=== PATIENT | male | born 1965 | race Caucasian/White ===

== ENCOUNTER 2016-04-23 09:31 | Day surgery (SDC) | payer MEDICARE, OTHER ==
[2016-04-21 10:51] VITALS: BMI 33.7
[~2016-04-23 09:31] MED LIST: LACTATED RINGERS 1,000 ML IV SCH
[2016-04-23] MEDS ORDERED: LIDOCAINE 1% 20 ML VIAL (10MG/ML) FOR IV START INTRADERMA ONE (10:08)
[2016-04-23 10:11] VITALS: RESP 18; TEMP 98.4
[2016-04-23] MEDS ORDERED: MIDAZOLAM 2 MG/2 ML VIAL ONE (10:31)
[2016-04-23] MEDS ORDERED: BUPIVACAINE (PF) 0.5% 30 ML VIAL ONE (10:31)
[2016-04-23] MEDS ORDERED: fentaNYL (PF) 50 MCG/ML 2 ML AMP ONE (10:31)
[2016-04-23] MEDS ORDERED: IOHEXOL 180 MG/ML 1 ML ML ONE (10:31)
[2016-04-23] MEDS ORDERED: TRIAMCINOLONE ACETONIDE 40 MG/ML 1 ML VIAL ONE (10:31)
[2016-04-23] MEDS ORDERED: IV FLUID CONTINUATION 1,000 ML IV ONE (10:57)
--- NOTE | 2016-04-23 10:59 | P.PCN ---
Date of Procedure: 04/23/16 Anesthesia: MAC Surgeon: Sourav Arias Pathology: none sent Condition: stable Disposition: PACU Description of Procedure: PREOPERATIVE DIAGNOSIS: 1-Bilateral sacroiliitis. 2 Lumbar DDD 3. Myofascial pain syndrome POSTOPERATIVE DIAGNOSIS: same PROCEDURES: 1. RIGHT Sacroiliac joint steroid injection with fluoroscopic guidance 2. RIGHT thoracic paravertebral, rhomboid, trapezius trigger point injections, ANESTHESIA: Conscious sedation with Versed/fentanyl. EBL: Minimal. PROCEDURE INDICATIONS: This patient with a history of low back pain secondary to sacroiliitis and lumbar DDD unresponsive to conservative management. Patient got four weeks of relief > 50% from second injection after obtaining one week of relief from the first one. Patient last had LESI in February with only 3 days' worth of relief. No use of blood thinners. PROCEDURE DESCRIPTION: The patient was seen and identified in the preoperative area. Risks, benefits, complications, and alternatives were discussed with the patient (including but not limited to incomplete pain relief, bleeding, infection, nerve damage, and allergies to medications), the patient agreed to proceed with the procedure and signed the consent after all questions were answered. Patient was taken to the OR and time out was completed to verify proper patient , position, laterality of pain, and allergies. Pt was placed in the prone position and a pillow was placed under the abdomen to reduce lumbar lordosis. The lumbosacral area was prepped and draped in the usual sterile fashion. Critical pause was taken. Vital signs were closely monitored during the procedure. The fluoroscopic camera was placed in contralateral oblique view and right sacroiliiac joint lower pole was identified. Subsequently, a 22-gauge 3.5 inch spinal needle was introduced into the posteroinferior aspect of the right sacroiliac joint under direct fluoroscopic visualization. Subsequently, 4 ml solution containing total 2 mL of 0.5% preservative-free bupivicaine mixed with 80 mg of Kenalog was injected after negative aspiration for CSF, blood, and air and negative for paresthesia. Needle was withdrawn intact. Attention was then turned to the right shoulder and paravertebral areas. Eight areas were palpated and elicited pain from the patient and were marked appropriately with a sterile marker. The area overlying these points was prepped and draped in a sterile fashion. The skin overlying each of the eight trigger points was infiltrated with 1% lidocaine. After localization, each point was entered with a 27g needle and dry needling was performed. At each site, 1 ml of the 8 ml solution (containing 7 ml 0.5% PF bupivacaine and 40 mg Kenalog) was injected. Needle was removed intact each time. After both procedures were completed, skin was cleansed, and bandages were applied. COMPLICATIONS: None. COMMENTS: DISPOSITION / PLANS: The patient was placed in a supine position and transferred to the recovery area in a stable condition for observation and was discharged from the recovery room after meeting discharge criteria. Home discharge instructions given to the patient by the staff. The patient was reexamined prior to discharge and there were no issues. The patient will schedule a follow-up in clinic in 4-6 weeks. Last urine drug screen was negative for both fentanyl and oxycodone and positive for tramadol. We only prescribe the first two for the patient. I repeated urine drug screen today PRIOR to any sedation being given and wrote prescriptions for one month, to be filled on or after 05/19/16. For purposes of UDS, please note that patient was wearing a fentanyl patch on his abdomen and stated that he had taken a Percocet pill at 5:30 AM this morning.
[2016-04-23 11:15] VITALS: BP 117/82; PULSE 79
--- NOTE | 2016-04-23 12:02 | FL ---
EXAMINATION TYPE: FL guided pain mgmt statistic DATE OF EXAM: 04/23/2016 11:05 AM FLUOROSCOPY Fluoroscopy time of 2 seconds was used during right SI joint injection. 2 image/s document/s the pro cedure.
== END 2016-04-23 11:40 | disposition home or self-care (01) ==
LOC: ORPAIN 09:31
PROVIDERS: ATTEND Anesthesiology
DX: G89.29 Other chronic pain (principal); M46.1 Sacroiliitis, not elsewhere classified; M51.36 Other intervertebral disc degeneration, lumbar region; M79.1 Myalgia; F41.9 Anxiety disorder, unspecified; E66.9 Obesity, unspecified; M10.9 Gout, unspecified; Z79.891 Long term (current) use of opiate analgesic; Z79.1 Long term (current) use of non-steroidal anti-inflammatories (NSAID); Z79.899 Other long term (current) drug therapy
CPT/HCPCS: 80307 ×2; 20553; J2250; J3301; Q9965; J3010; G0260; 27096; 80346; 80354; 80364

== ENCOUNTER 2016-05-28 12:00 | Day surgery (SDC) | payer MEDICARE, OTHER ==
[2016-05-27 11:28] VITALS: BMI 33.4
[2016-05-28 11:01] VITALS: TEMP 98.2
[~2016-05-28 12:00] MED LIST changes: +LACTATED RINGERS 1,000 ML IV ONE; +LIDOCAINE 1% 20 ML VIAL (10MG/ML) FOR IV START SQ ONE; +MIDAZOLAM 2 MG/2 ML VIAL ONE; +TRIAMCINOLONE ACETONIDE 40 MG/ML 1 ML VIAL ONE; +fentaNYL (PF) 50 MCG/ML 2 ML AMP ONE
[2016-05-28] MEDS ORDERED: IV FLUID CONTINUATION 1,000 ML IV ONE (12:31)
[2016-05-28 12:58] VITALS: BP 125/77; PULSE 60; RESP 19
--- NOTE | 2016-05-28 13:01 | FL ---
FLUOROSCOPY 33 seconds of fluoroscopy time were utilized during right SI joint injection. 2 images document the p rocedure.
--- NOTE | 2016-05-28 13:30 | P.PCN ---
Date of Procedure: 05/28/16 Surgeon: Sourav Arias Pathology: none sent Condition: stable Disposition: PACU Description of Procedure: PREOPERATIVE DIAGNOSIS: Sacroiliitis; lumbar spondylosis without myelopathy POSTOPERATIVE DIAGNOSIS: Sacroiliitis; lumbar spondylosis without myelopathy PROCEDURE: Radiofrequency thermocoagulation/ablation of the Medial branch of L5 and S1, S2, S3 lateral branch levels under fluoroscopic guidance, right ANESTHESIA: Local with 1% lidocaine; IV conscious sedation with Versed/fentanyl EBL: Minimal PROCEDURE INDICATION: The patient with low back pain secondary to sacroilitis and lumbar spondylosis with marked decrease in pain with prior sacroiliac joint injections. No use of blood thinners. PROCEDURE DESCRIPTION: The patient was seen and identified in the preoperative area. Risks, benefits, complications, and alternatives were discussed with the patient, with risks including but not limited to bleeding, infection, nerve damage, incomplete pain relief, and allergic reactions to medications. The patient agreed to proceed with the procedure and signed the informed consent after all questions were answered. IV was started. Vital signs were stable throughout the procedure. Patient was taken to the OR and time out was completed.The patient was placed in the prone position on procedure table and a pillow was placed under the abdomen to reduce lumbar lordosis. The lumbosacral area was prepped and draped in the usual sterile fashion. Critical pause was taken. Vital signs were closely monitored during the procedure. L5 Medial Branch: Using right oblique fluoroscopy, the junction of the transverse process and the superior articular process of the right S1 vertebra, which correspond to the fluoroscopic image of the "eye of the Oscar dog" was identified. Skin and deeper tissues were localized with 1% lidocaine at the identified level. Then using fluoroscopy, a 10-cm 20-gauge radiofrequency cannula with a 10-mm active tip was was advanced under fluoroscopic guidance until contact was made with periosteum. At this level, the Sensory testing of L5 Medial branch was performed at 50 Hz and 0 to 1 volt with production of concordant pain. Motor stimulation was done at 2 Hz with stimulation of multifidus muscle contraction at (0-2.5) volts. No radicular symptoms or paresthesias were produced during the testing. Subsequently, the L5 medial branch was subjected to a radiofrequency ablation at a mode of 90 seconds at 80 degrees Celsius after negative motor and sensory testing as indicated and after injecting 0.5 ml of preservative free Lidocaine 1%. Then after the radiofrequency procedure was done, 1 mL of a solution containing 1 mL of 0.5% preservative-free lidocaine mixed with 20 mg of Kenalog. S1, S2, and S3 Medial branches: Using the oblique position, the right sacroiliac joint was identified. Skin and deeper tissues corresponding to the site were anesthetized with 1% lidocaine. Under fluoroscopic guidance, a total of three 10-cm 20-gauge radiofrequency cannulas with 10-mm active tips were advanced to the lateral aspects of the S1, S2, and S3 vertebral foramina. Subsequently, sensory and motor testings were performed at a total of 3 segments at 50 Hz and 2 Hz respectively which produced concordant pain without radiculopathy or paresthesia. Then each segment was subjected to radiofrequency ablation at a mode of 90 seconds at 80 degrees Celsius for a total of 3 lesions with the bipolar technique. Then after the radiofrequency procedure was done, each site was injected with 1 mL of the aforementioned solution containing 2 mL of 0.5% preservative-free bupivacaine mixed with 20 mg of Kenalog. The needles were withdrawn. Area was cleaned. Band-Aid was applied. COMPLICATIONS: None. COMMENTS: DISPOSITION / PLANS: The patient was placed in a supine position and transferred to the recovery area in a stable condition for observation and was discharged from the recovery room after meeting discharge criteria. Home discharge instructions given to the patient by the staff. The patient was reexamined prior to discharge. The patient will schedule a follow up in clinic in 4-6 weeks.
== END 2016-05-28 14:25 | disposition home or self-care (01) ==
LOC: ORPAIN 12:00
PROVIDERS: ATTEND Anesthesiology
DX: G89.29 Other chronic pain (principal); M54.5 Low back pain; M46.1 Sacroiliitis, not elsewhere classified; M47.816 Spondylosis without myelopathy or radiculopathy, lumbar region; F41.9 Anxiety disorder, unspecified; M10.9 Gout, unspecified; Z79.1 Long term (current) use of non-steroidal anti-inflammatories (NSAID); Z79.891 Long term (current) use of opiate analgesic; Z79.899 Other long term (current) drug therapy
CPT/HCPCS: 64640 ×3; 64635; 99152; 99153; J2250; J3301; J3010

== ENCOUNTER → 2016-07-13 | Outpatient (CLI) | payer MEDICARE, OTHER ==
[2016-07-13 11:40] VITALS: BP 162/93; PULSE 87; RESP 18; TEMP 98.4
--- NOTE | 2016-07-13 12:44 | P.PN ---
Subjective This is follow-up visit for this patient with a history of severe and chronic low back pain secondary to lumbar DDD, sacroiliitis lumbar facet arthropathy, myofascial pain syndrome, with done radiofrequency ablation of the sacroiliac joint, and trigger point injections On the thoracic area, the patient reported that he has significant improvement after the procedure, and his low back pain improved Currently is complaining of severe upper back pain in the left side at the shoulder blade area, and upper thoracic area, he denies any Motor or sensory deficit, he denies any change in the bowel movement or urination, and no fever or night sweats, he is taking pain medication 1-fentanyl patch 50 g every 72 hours 2-Percocet 10/325 every 4 hours 3-lidocaine 5% gel Patient denies any side effects of the medication, denies excessive drowsiness or sleepiness, denies suicidal ideation, and reports that the current pain medication is helping To control the pain and improve activity of daily living Physical Examinations : 1-Constitutiona : Cooperative , not in acute distress . 2-HEENT : nech ; supple , no Lymphadenopathy , no Thyromegaly , normal thyroid size . eyes : no ptosis , no icterus, no photophobia . ENT : normal of hearing , normal oropharynx , no Thrush . 3- Respiratory : Chest clear to auscultations Bilaterally , no wheezing , no Rhonchi . 4- Cardiovascular : regular rate and rhythem , S1 , S2 , no S3 , no S4. 5- Gastrointestinal : abdomen soft no tenderness , bowel sounds positive all four quadrents , no organomegally . 6- Genitourinary : Defferred . 7- neurologic : Cranial nerve II to XII intact , no focal neurological deffecit . 8-psychatric : alert , oriented X 3 , appropriate affect , intact judgment and insight . 9-Lymphatic : no Lymphadenopathy . 10- musculoskeltal : exams of the cervical spine = motor strength normal bilateral upper extremities Exams of the upper back area = multiple trigger points identified in the left side suprascapular and upper thoracic paravertebral muscles exams of the Lumber spine = motor strength lower extremities ,thigh and legs .5/5 deep tendon reflexes : normal Knee Jerk , normal ankle Jerk . lumber facet Loading Test positive mild tenderness over the Sacroiliac joint on the Right side Assessment and plan = - Chronic low back pain secondary to lumbar degenerative disc disease , lumbar spondylosis with facet arthropathy without myelopathy , sacroiliitis/myofascial pain syndrome thoracic and suprascapular muscles on the left side - chronic and current use of high-risk medication (Opioids). The patient was counseled about risk of opioid use, psychological risk associated with opioids and was orally counseled to not overuse , divert,or sell dictations to take medications as prescribed only , and to restore medication in safe location , and the patient counseled against driving while using narcotic medications, and also not to use alcohol or any illicit recreational drugs, the patient's verbalized understanding that the lack of compliance will result in failure to renew narcotic prescription and possible discharge from the clinic - diagnoses, prognosis, and treatment options including but not limited to physical therapy, surgical interventions, interventional therapies , and medication management including narcotics and adjuvant medication were discussed with the patient and all The questions answered -medication management =1-fentanyl patch 50 g every 72 hours dispense 10 with one refill, Percocet 10/325 every 4 when necessary Dispense 150 with 1 refill, lidocaine 5% gel to be applied to the painful area twice a day 5 refills -procedure= left side suprascapular/upper thoracic area and trigger point injections Objective - Vital Signs Vital signs: Vital Signs Temp 98.4 F 07/13/16 11:34 Pulse 87 07/13/16 11:34 Resp 18 07/13/16 11:34 BP 162/93 07/13/16 11:34 Pulse Ox Intake & Output 07/12/16 07/13/16 07/13/16 18:59 06:59 18:59 Weight 111.13 kg
== END | disposition home or self-care (01) ==
LOC: PNWHC3 11:33
PROVIDERS: ATTEND Specialist
DX: M51.36 Other intervertebral disc degeneration, lumbar region (principal); M47.816 Spondylosis without myelopathy or radiculopathy, lumbar region; M46.86 Other specified inflammatory spondylopathies, lumbar region; M46.1 Sacroiliitis, not elsewhere classified; M79.1 Myalgia
CPT/HCPCS: 99211

== ENCOUNTER 2016-08-10 07:53 | Day surgery (SDC) | payer MEDICARE, OTHER ==
[2016-08-06 13:46] VITALS: BMI 35.2
[~2016-08-10 07:53] MED LIST changes: -LACTATED RINGERS 1,000 ML IV ONE; -LIDOCAINE 1% 20 ML VIAL (10MG/ML) FOR IV START SQ ONE; -MIDAZOLAM 2 MG/2 ML VIAL ONE; -TRIAMCINOLONE ACETONIDE 40 MG/ML 1 ML VIAL ONE; -fentaNYL (PF) 50 MCG/ML 2 ML AMP ONE
[2016-08-10 08:21] VITALS: RESP 18; TEMP 97.2
[2016-08-10] MEDS ORDERED: LIDOCAINE 1% 20 ML VIAL (10MG/ML) FOR IV START INTRADERMA ONE (08:26)
[2016-08-10] MEDS ORDERED: TRIAMCINOLONE ACETONIDE 40 MG/ML 1 ML VIAL ONE (08:46)
[2016-08-10] MEDS ORDERED: MIDAZOLAM 2 MG/2 ML VIAL ONE (08:46)
[2016-08-10] MEDS ORDERED: fentaNYL (PF) 50 MCG/ML 2 ML AMP ONE (08:46)
[2016-08-10] MEDS ORDERED: BUPIVACAINE (PF) 0.75% 30 ML VIAL ONE (08:46)
--- NOTE | 2016-08-10 09:07 | P.PCN ---
Date of Procedure: 08/10/16 Procedure(s) Performed: Preoperative diagnoses= 1-myofascial pain syndrome Postoperative diagnoses= same as preoperative diagnosis. Procedure= left side suprascapular trigger point injection (total of 2 trigger point injected ) Anesthesia= conscious sedation with Versed 2 mg and fentanyl 100 micrograms. Estimated blood loss=minimal. Procedure indication= the patient had a history of severe chronic upper back pain (left supra scapular area ), unresponsive to conservative treatment. Procedure description= the patient was seen and identified in the preoperative holding area, risks and benefits and alternative of the procedure and possible complications discussed with the patient, and he agreed with the preceding, patient signed the consent, an IV was started, and vital signs were monitored and were stable throughout the procedure, patient was placed in the sitting position or table and the upper back area ,shoulder blad area was prepped and draped with a sterile fashion, vital signs were closely monitored during the procedure , the trigger points was marked in the preop holding area ,,then using 25 gauge needle advanced slowly placed at each trigger point using 0.75% of Marcaine , and after negative aspiration each of the trigger point injected with the 3 mL of 0.75% of Marcaine , a total of 6 mL of Marcaine 0.75% used which was mixed with 40 mg of Kenalog , injection done after negative aspiration under was no paresthesia during the injection Patient tolerated the procedure well without any complication, The patient returned to supine position after the back was cleaned and a Band- Aid applied, the patient transported to recovery room in stable condition and he was monitored for 30 minutes before he was discharged home and then patient was reexamined before going home and patient was discharged in stable condition and patient will follow up with the pain clinic in a few weeks
[2016-08-10 09:22] VITALS: BP 140/91; PULSE 80
== END 2016-08-10 09:38 | disposition home or self-care (01) ==
LOC: ORPAIN 07:53
PROVIDERS: ATTEND Specialist
DX: G89.29 Other chronic pain (principal); M54.89 Other dorsalgia; M79.1 Myalgia; Z88.8 Allergy status to other drugs, medicaments and biological substances; Z88.1 Allergy status to other antibiotic agents; Z91.030 Bee allergy status
CPT/HCPCS: 20552; J2250; J3301; J3010; 20553

== ENCOUNTER → 2016-09-07 | Outpatient (CLI) | payer MEDICARE, OTHER ==
[2016-09-07 11:58] VITALS: BP 164/103; PULSE 104; RESP 16; TEMP 98.8
--- NOTE | 2016-09-07 12:13 | P.PN ---
Progress Note - Text The patient returns for follow-up of chronic back and neck pain. Patient underwent right SI RFA and more recently, TPI in left shoulder that have both helped him. Patient continues on his fentanyl patch and Percocet medication with good relief at this time. There are no signs or symptoms of opioid abuse/ misuse/diversion He continues to complain of returning low back and hip pain on the left side that has been responsive to previous sacroiliac joint injections and radiofrequency ablation (2011) in the past. Patient is doing well with his medications and denies any side effects to them. Review of systems is negative for chest pain, shortness of breath, changes in vision, changes in hearing, new onset weakness, abdominal pain, diarrhea, extreme fatigue, malaise, fever, skin changes, homicidal or suicidal ideation, or bowel or bladder incontinence. Gen: WDWN, AAOx3, NAD HEENT: NCAT, EOMI, hearing grossly normal Pulm: resp unlabored Abd: soft, NT, ND Neck: supple, trachea midline ROM in flexion lumbar spine: reduced ROM in extension lumbar spine: reduced Lumbar paravertebral tenderness: + bilateral Facet loading: + bilateral, L >> R SI joint tenderness: + Delmer's test: + bilaterally, L >> R Straight leg raise: neg bilateral Neuro: CN II-XII grossly intact, muscle strength lower extremities PRESERVED Imaging: Reviewed in EMR Assessment: 1. Sacroiliitis 2. Cervical radiculopathy 3. Lumbar spondylosis without myelopathy Plan: 1. Explanation: Opioid and psychological risk scores were reviewed. Diagnoses , prognoses, and multiple treatment options including but not limited to physical therapy, interventional therapies, adjuvant medical therapies, narcotic medication therapies, and surgery were discussed with the patient and all questions were answered to the patient's satisfaction. 2. Opioid agreement: Patient has previously signed narcotic agreement, and was orally counseled to not overuse, abuse, divert, or cell medications, and to take them as prescribed by only 1 healthcare provider. The patient was also counseled to store opioid medications in a safe and preferably locked location. Patient was also counseled against driving while using narcotic medications and also to not use alcohol or any illicit or recreational drugs. The patient verbalized understanding that lack of compliance with any of the above and likely result in failure to renew narcotic prescriptions, possible discharge from the clinic, and possible legal ramifications thereafter if indicated. 3. Counseling: The patient was counseled extensively on SMOKING CESSATION, BODY MASS INDEX, EXERCISE. Specifically, the patient was instructed regarding the importance of smoking cessation, obesity, and exercise in the context of both chronic pain and overall health. 4. Procedures: L SI RFA 5. Consultations: None 6. Investigations: None 7. Medications: Fentanyl patch (50 mcg/hr #10) + Percocet (10/325 #150) x 2 months 8. Disposition: f/u for procedure as scheduled; I have informed patient that we will likely begin decreasing his Percocet at next visit in order to get him closer to #90 within the next six months. PQRS measures: 1-Patient's medications are documented in the chart. 2-Tobacco use is negative 3-Patient has not had a pneumococcal vaccine. 4-Advanced care planning discussed, patient unable to give. 5-Opioid contract signed with the patient. 6-Pain positive, follow-up visit or procedure scheduled 7-Patient's blood pressure measured and documented, and patient will follow up with the primary care due to hypertension. 8-Patient's weight was measured, and body mass index ABOVE the normal limits, and counseling was done. Patient instructed to follow up with PCP. 9-Patient WAS NOT identified as an unhealthy alcohol user.
== END ==
LOC: PNWHC3 11:38
PROVIDERS: ATTEND Anesthesiology
DX: M54.12 Radiculopathy, cervical region (principal); M47.26 Other spondylosis with radiculopathy, lumbar region; M46.1 Sacroiliitis, not elsewhere classified; G89.29 Other chronic pain; Z79.891 Long term (current) use of opiate analgesic
CPT/HCPCS: 99211

== ENCOUNTER 2016-09-08 14:36 | Emergency (ER) | payer MEDICARE, OTHER ==
[2016-09-08] MEDS ORDERED: MORPHINE SULFATE 4 MG/ML SYRINGE IM STA (15:29)
[2016-09-08] MEDS ORDERED: KETOROLAC 60 MG/2 ML VIAL IM STA (15:30)
--- NOTE | 2016-09-08 15:33 | ED ---
Extremity Problem HPI - General Chief complaint: Extremity Problem,Nontraumatic Stated complaint: Leg Pain Time Seen by Provider: 09/08/16 15:20 Source: patient, RN notes reviewed Mode of arrival: wheelchair Limitations: no limitations - History of Present Illness Initial comments: 50-year-old male presents emergency Department with chief complaint of knee pain , left wrist pain. Patient states that he has a long-standing history of severe gout. Patient felt that he was having a dry mouth because of his cultures seen so he stopped it states that 2 days later he had pain in his knee and his wrists where he usually gets his gout. Patient states that he started taking his cultures seen and indomethacin once daily yesterday states that he has had some improvement but he is out of his pain medication. Patient states pain management. Patient states that he also noticed coating on his tongue which she believes is thrush because his had not past. Patient states that he has been trying to brush her and gargle with different stuff but is not helping. Patient denies any fevers or chills. - Related Data Home Medications Medication Instructions Recorded Confirmed ALPRAZolam [Xanax] 0.5 mg PO Q8HR PRN 06/27/14 09/07/16 Allopurinol [Zyloprim] 300 mg PO DAILY PRN 10/02/15 09/07/16 Indomethacin [Indocin] 50 mg PO TID PRN 10/23/15 09/07/16 Colchicine 0.6 mg PO DAILY PRN 11/23/15 09/07/16 Previous Rx's Medication Instructions Recorded Lidocaine 5% Oint [Xylocaine 5% 1 applic TOPICAL DAILY PRN #1 07/13/16 Oint] applic fentaNYL 50MCG/HR PATCH [Duragesic 1 patch TRANSDERM Q72H #10 patch 09/07/16 50MCG/HR] fentaNYL 50MCG/HR PATCH [Duragesic 1 patch TRANSDERM Q72H #10 patch 09/07/16 50MCG/HR] oxyCODONE HCL/ACETAMINOPHEN 1 tab PO Q4HR PRN #150 tab 09/07/16 [Percocet 10-325 mg] oxyCODONE-APAP 10-325MG [Percocet 10 mg PO Q4HR PRN #150 tab 09/07/16 10-325 mg] Nystatin 100,000 Unit/ml Susp 5 ml PO QID #200 ml 09/08/16 [Mycostatin Oral Susp] Allergies Allergy/AdvReac Type Severity Reaction Status Date / Time bee pollen [Bee Pollen] Allergy Swelling Verified 09/08/16 14:40 doxycycline calcium Allergy Swelling Verified 09/08/16 14:40 [From Vibramycin] gabapentin Allergy Rash/Hives Verified 09/08/16 14:40 Tvtavlm-Oqn-Rfu Reductase Allergy Unknown Verified 09/08/16 14:40 Inhibitor simvastatin AdvReac Confusion Verified 09/08/16 14:40 Review of Systems ROS Statement: Those systems with pertinent positive or pertinent negative responses have been documented in the HPI. ROS Other: All systems not noted in ROS Statement are negative. Past Medical History Past Medical History: Cancer, Hyperlipidemia, Osteoarthritis (OA), Skin Disorder Additional Past Medical History / Comment(s): LEFT SHOULDER SKIN CANCER,CHRONIC BACK PAIN- DDD,HX GOUT, PAIN IN NECK,BACK,RAFAELA. KNEES & HIPS & LT SHOULDER, SOME DRY PATCHES ON ARMS & CALVES, increasing pain right hip, last episode of Gout 3 weeks ago. History of Any Multi-Drug Resistant Organisms: None Reported Past Surgical History: Back Surgery, Hernia Repair, Joint Replacement, Orthopedic Surgery Additional Past Surgical History / Comment(s): RIGHT AND LEFT KNEE ARTHROSCOPIC , LEFT WRIST GANGLION CYST & TUMOR REMOVED,RAFAELA. ING. HERNIA- NO MESH, A CHILD CYST OFF CHEST AREA, PAIN CLINIC PROCEDURES Past Anesthesia/Blood Transfusion Reactions: No Reported Reaction Past Psychological History: Anxiety Smoking Status: Former smoker Past Alcohol Use History: Occasional Additional Past Alcohol Use History / Comment(s): SMOKER 1992 TILL 06/12/2002- WAS 1 1/2 PPD Past Drug Use History: None Reported - Past Family History Mother Family Medical History: Cancer General Exam Limitations: no limitations General appearance: alert, in no apparent distress ENT exam: Absent: normal oropharynx (There is a coating noted on the tongue which is white in nature) Neck exam: Present: normal inspection. Absent: tenderness, meningismus, lymphadenopathy Respiratory exam: Present: normal lung sounds bilaterally. Absent: respiratory distress, wheezes, rales, rhonchi, stridor Cardiovascular Exam: Present: regular rate, normal rhythm, normal heart sounds. Absent: systolic murmur, diastolic murmur, rubs, gallop, clicks Extremities exam: Present: other (Right knee there is moderate swelling and very sensitive palpation. His small joint effusion. Vascular intact, left wrist there is tenderness palpation, swelling noted no open lesions or sores minimal erythema) Skin exam: Present: warm, dry, intact, normal color. Absent: rash Course Vital Signs 09/08/16 14:37 Temperature 98.7 F Pulse Rate 96 Respiratory 18 Rate Blood Pressure 177/82 O2 Sat by Pulse 93 L Oximetry Medical Decision Making - Medical Decision Making 48-year-old male that has history of gout presented for joint pain. Patient symptoms started after he stopped scrotal seen. Patient's symptoms are consistent for gout. Patient is advised to increase his indomethacin to 3 times a day and continue his colchicine. Patient will be given nystatin for his thrush. Patient follow-up with pain management. Disposition Clinical Impression: Thrush, Gout of left wrist, Gout of knee Disposition: HOME SELF-CARE Condition: Stable Instructions: Gout (ED) Additional Instructions: Please return to the Emergency Department if symptoms worsen or any other concerns. Prescriptions: Nystatin 100,000 Unit/ml Susp [Mycostatin Oral Susp] 5 ml PO QID #200 ml Referrals: Nela Gill MD [Primary Care Provider] - 1-2 days Time of Disposition: 15:33
[2016-09-08] MEDS ORDERED: MORPHINE SULFATE 10 MG/ML SYRINGE IM STA (15:44)
[2016-09-08 16:00] VITALS: BP 153/86; PULSE 89; RESP 16; TEMP 98
== END 2016-09-08 16:02 | disposition home or self-care (01) ==
LOC: EC 14:36
DX: M10.9 Gout, unspecified (principal); B37.0 Candidal stomatitis; M25.461 Effusion, right knee; Z85.828 Personal history of other malignant neoplasm of skin; Z87.891 Personal history of nicotine dependence; Z88.1 Allergy status to other antibiotic agents; Z88.8 Allergy status to other drugs, medicaments and biological substances; Z91.030 Bee allergy status
CPT/HCPCS: 99283; 96372 ×2; J2270; J1885

== ENCOUNTER 2016-10-14 00:24 | Emergency (ER) | payer MEDICARE, OTHER ==
[2016-10-14 00:34] VITALS: RESP 18
--- NOTE | 2016-10-14 00:58 | ED ---
Extremity Problem HPI - General Chief complaint: Extremity Problem,Nontraumatic Stated complaint: R foot cellulitis Time Seen by Provider: 10/14/16 00:40 Source: patient, RN notes reviewed Mode of arrival: ambulatory Limitations: no limitations - History of Present Illness Initial comments: 50-year-old male presents emergency Department chief complaint right foot swelling. Patient states started last 24 hours has progressed quickly. Patient states she has swelling and redness TO his mid foot. Patient states murmurs stepping on a stick a few days ago and the puncture wound to his right foot first digit. He states there was some purulent drainage squeezed out and also states that he made a small incision to the area. Patient denies any fever or chills. He did have some night sweats. Patient states he recently had a gout exacerbation. Patient states that those symptoms improved in the started. Patient denies any calf pain. Patient states that he has a history of cellulitis in his right leg. - Related Data Home Medications Medication Instructions Recorded Confirmed ALPRAZolam [Xanax] 0.5 mg PO Q8HR PRN 06/27/14 10/14/16 Allopurinol [Zyloprim] 300 mg PO DAILY PRN 10/02/15 10/14/16 Indomethacin [Indocin] 50 mg PO TID PRN 10/23/15 10/14/16 Colchicine 0.6 mg PO DAILY PRN 11/23/15 10/14/16 Previous Rx's Medication Instructions Recorded Lidocaine 5% Oint [Xylocaine 5% 1 applic TOPICAL DAILY PRN #1 07/13/16 Oint] applic fentaNYL 50MCG/HR PATCH [Duragesic 1 patch TRANSDERM Q72H #10 patch 09/07/16 50MCG/HR] oxyCODONE-APAP 10-325MG [Percocet 10 mg PO Q4HR PRN #150 tab 09/07/16 10-325 mg] Nystatin 100,000 Unit/ml Susp 5 ml PO QID #200 ml 09/08/16 [Mycostatin Oral Susp] Sulfamethox-Tmp 800-160Mg [Bactrim 1 each PO Q12HR #20 tab 10/14/16 Ds] Allergies Allergy/AdvReac Type Severity Reaction Status Date / Time bee pollen [Bee Pollen] Allergy Swelling Verified 10/14/16 00:34 doxycycline calcium Allergy Swelling Verified 10/14/16 00:34 [From Vibramycin] gabapentin Allergy Rash/Hives Verified 10/14/16 00:34 Kiefudg-Rnz-Vju Reductase Allergy Unknown Verified 10/14/16 00:34 Inhibitor simvastatin AdvReac Confusion Verified 10/14/16 00:34 Review of Systems ROS Statement: Those systems with pertinent positive or pertinent negative responses have been documented in the HPI. ROS Other: All systems not noted in ROS Statement are negative. Past Medical History Past Medical History: Cancer, Hyperlipidemia, Osteoarthritis (OA), Skin Disorder Additional Past Medical History / Comment(s): LEFT SHOULDER SKIN CANCER,CHRONIC BACK PAIN- DDD,HX GOUT, PAIN IN NECK,BACK,RAFAELA. KNEES & HIPS & LT SHOULDER, SOME DRY PATCHES ON ARMS & CALVES, increasing pain right hip History of Any Multi-Drug Resistant Organisms: None Reported Past Surgical History: Back Surgery, Hernia Repair, Joint Replacement, Orthopedic Surgery Additional Past Surgical History / Comment(s): RIGHT AND LEFT KNEE ARTHROSCOPIC , LEFT WRIST GANGLION CYST & TUMOR REMOVED,RAFAELA. ING. HERNIA- NO MESH, A CHILD CYST OFF CHEST AREA, PAIN CLINIC PROCEDURES Past Anesthesia/Blood Transfusion Reactions: No Reported Reaction Past Psychological History: Anxiety Smoking Status: Former smoker Past Alcohol Use History: Occasional Past Drug Use History: None Reported - Past Family History Mother Family Medical History: Cancer General Exam Limitations: no limitations General appearance: alert, in no apparent distress Respiratory exam: Present: normal lung sounds bilaterally. Absent: respiratory distress, wheezes, rales, rhonchi, stridor Cardiovascular Exam: Present: regular rate, normal rhythm, normal heart sounds. Absent: systolic murmur, diastolic murmur, rubs, gallop, clicks Extremities exam: Present: other (Right foot there is moderate swelling and erythema to the mid foot, pedal pulses equal bilaterally +2 areas of puncture wound noted to the right foot first digit with thick drainage noted) Skin exam: Present: warm, dry Course Vital Signs 10/14/16 00:30 Temperature 98.7 F Pulse Rate 84 Respiratory 18 Rate Blood Pressure 144/87 O2 Sat by Pulse 96 Oximetry Medical Decision Making - Medical Decision Making Patient states 1-year-old male presented for right foot swelling and redness. Patient has Aspect of gout and cellulitis. Symptoms have she improved somewhat with elevation here. Patient will be discharged with follow-up with primary care physician return parameters were discussed. - Lab Data Result diagrams: 10/14/16 01:29 10/14/16 01:29 Lab Results 10/14/16 10/14/16 10/14/16 Range/Units 01:29 01:29 01:29 WBC 7.5 (3.8-10.6) k/uL RBC 4.51 (4.30-5.90) m/uL Hgb 13.4 (13.0-17.5) gm/dL Hct 37.2 L (39.0-53.0) % MCV 82.5 (80.0-100.0) fL MCH 29.6 (25.0-35.0) pg MCHC 35.9 (31.0-37.0) g/dL RDW 13.9 (11.5-15.5) % Plt Count 285 (150-450) k/uL Neutrophils % 65 % Lymphocytes % 25 % Monocytes % 5 % Eosinophils % 1 % Basophils % 1 % Neutrophils # 4.9 (1.3-7.7) k/uL Lymphocytes # 1.9 (1.0-4.8) k/uL Monocytes # 0.4 (0-1.0) k/uL Eosinophils # 0.1 (0-0.7) k/uL Basophils # 0.1 (0-0.2) k/uL Sodium 138 (137-145) mmol/L Potassium 4.2 (3.5-5.1) mmol/L Chloride 101 (98-107) mmol/L Carbon Dioxide 26 (22-30) mmol/L Anion Gap 11 mmol/L BUN 9 (9-20) mg/dL Creatinine 0.80 (0.66-1.25) mg/dL Est GFR (MDRD) Af Amer >60 (>60 ml/min/1.73 sqM) Est GFR (MDRD) Non-Af >60 (>60 ml/min/1.73 sqM) Glucose 143 H (74-99) mg/dL Plasma Lactic Acid Ajay 1.3 (0.7-2.0) mmol/L Uric Acid 10.1 H (3.5-8.5) mg/dL Calcium 9.3 (8.4-10.2) mg/dL C-Reactive Protein 54.5 H (<10.0) mg/L Disposition Clinical Impression: Cellulitis of right foot, Gout Disposition: HOME SELF-CARE Condition: Stable Instructions: Gout (ED), Cellulitis (ED) Additional Instructions: Please return to the Emergency Department if symptoms worsen or any other concerns. Prescriptions: Sulfamethox-Tmp 800-160Mg [Bactrim Ds] 1 each PO Q12HR #20 tab Referrals: Nela Gill MD [Primary Care Provider] - 1-2 days Time of Disposition: 02:30
[2016-10-14 01:43] LABS: Basophils # (A) 0.1 k/uL (0-0.2); Basophils % (A) 1 %; CH 29.2; CHCM 35.6; Eosinophils # (A) 0.1 k/uL (0-0.7); Eosinophils % (A) 1 %; HCT 37.2 % (39.0-53.0); HDW 3.32; HGB 13.4 gm/dL (13.0-17.5); Luc # (Auto) 0.15; Luc % (Auto) 2; Lymphocytes # (A) 1.9 k/uL (1.0-4.8); Lymphocytes % (A) 25 %; MCH 29.6 pg (25.0-35.0); MCHC 35.9 g/dL (31.0-37.0); MCV 82.5 fL (80.0-100.0); Mean Platelet Volume 6.8; Monocytes # (A) 0.4 k/uL (0-1.0); Monocytes % (A) 5 %; Neutrophils # (A) 4.9 k/uL (1.3-7.7); Neutrophils % (A) 65 %; RBC 4.51 m/uL (4.30-5.90); RDW 13.9 % (11.5-15.5); WBC 7.5 k/uL (3.8-10.6); WBC (Perox) 6.95
--- NOTE | 2016-10-14 01:56 | XR ---
EXAM: XR Right Foot Complete, 3 or More Views CLINICAL HISTORY: Reason: Pain, redness and swelling. History of gout. TECHNIQUE: Frontal, lateral and oblique views of the right foot. COMPARISON: 04/10/15 right foot series. FINDINGS: Bones/joints: Small corticated ossific fragment at the base of the fifth metatarsal is unchanged, may be sequela from remote injury or unfused accessory/ossicle. Smooth contour deformity of the fifth proximal phalanx is likewise stable and may also be the result of remote injury. No new acute fracture or dislocation. No new erosive changes or osteolysis seen. There are degenerative changes at the first MTP joint without associated marginal erosion seen. Soft tissues: There is again diffuse soft tissue swelling, greater than which was present on the prior exam, notably along the dorsum and also medial aspect of the foot. No radiopaque foreign body. IMPRESSION: 1. Nonspecific diffuse soft tissue swelling, greater than which was present previously. 2. No underlying new acute or focal osseous abnormality is seen at this time, as above.
[2016-10-14 02:03] LABS: Anion Gap 11 mmol/L; Blood Urea Nitrogen 9 mg/dL (9-20); C Reactive Protein 54.5 mg/L (<10.0); Calcium 9.3 mg/dL (8.4-10.2); Carbon Dioxide 26 mmol/L (22-30); Chloride 101 mmol/L (98-107); Glucose 143 mg/dL (74-99); Non-African American GFR(MDRD) >60 (>60 ml/min/1.73 sqM); Potassium 4.2 mmol/L (3.5-5.1); Sodium 138 mmol/L (137-145); Uric Acid 10.1 mg/dL (3.5-8.5)
[2016-10-14] MEDS ORDERED: AMPICILLIN-SULBACTAM 3 GM in SODIUM CHLORIDE 0.9% 100 ML IVPB STA (02:29)
[2016-10-14 03:47] VITALS: BP 128/71; PULSE 67; TEMP 97.3
== END 2016-10-14 03:48 | disposition home or self-care (01) ==
LOC: EC 00:24
DX: L03.115 Cellulitis of right lower limb (principal); M10.9 Gout, unspecified; R61 Generalized hyperhidrosis; Z87.891 Personal history of nicotine dependence; Z88.1 Allergy status to other antibiotic agents; Z88.8 Allergy status to other drugs, medicaments and biological substances; Z91.030 Bee allergy status
CPT/HCPCS: 36415; 80048; 83605; 84550; 85025; 86140; 87040; 73630; 99283; 96365; J0295

== ENCOUNTER → 2016-11-02 | Outpatient (CLI) | payer MEDICARE, OTHER ==
[2016-11-02 12:15] VITALS: BP 157/104; PULSE 84; RESP 18; TEMP 97.8
--- NOTE | 2016-11-02 12:37 | P.PN ---
Progress Note - Text The patient returns for follow-up of chronic back and neck pain. Several months ago, patient underwent right SI RFA and more recently, TPI in left shoulder that have both helped him. Patient continues on his fentanyl patch and Percocet medication with good relief at this time. There are no signs or symptoms of opioid abuse/misuse/diversion. He continues to complain of returning low back and hip pain on the left side that has been responsive to previous sacroiliac joint injections and radiofrequency ablation in the past. Patient is doing well with his medications and denies any side effects to them. Review of systems is negative for chest pain, shortness of breath, changes in vision, changes in hearing, new onset weakness, abdominal pain, diarrhea, extreme fatigue, malaise, fever, skin changes, homicidal or suicidal ideation, or bowel or bladder incontinence. Gen: WDWN, AAOx3, NAD HEENT: NCAT, EOMI, hearing grossly normal Pulm: resp unlabored Abd: soft, NT, ND Neck: supple, trachea midline ROM in flexion lumbar spine: reduced ROM in extension lumbar spine: reduced Lumbar paravertebral tenderness: + bilateral Facet loading: + bilateral, L >> R SI joint tenderness: + Delmer's test: + bilaterally, L >> R Straight leg raise: neg bilateral Neuro: CN II-XII grossly intact, muscle strength lower extremities PRESERVED Imaging: Reviewed in EMR Assessment: 1. Sacroiliitis 2. Cervical radiculopathy 3. Lumbar spondylosis without myelopathy Plan: 1. Explanation: Opioid and psychological risk scores were reviewed. Diagnoses , prognoses, and multiple treatment options including but not limited to physical therapy, interventional therapies, adjuvant medical therapies, narcotic medication therapies, and surgery were discussed with the patient and all questions were answered to the patient's satisfaction. 2. Opioid agreement: Patient has previously signed narcotic agreement, and was orally counseled to not overuse, abuse, divert, or cell medications, and to take them as prescribed by only 1 healthcare provider. The patient was also counseled to store opioid medications in a safe and preferably locked location. Patient was also counseled against driving while using narcotic medications and also to not use alcohol or any illicit or recreational drugs. The patient verbalized understanding that lack of compliance with any of the above and likely result in failure to renew narcotic prescriptions, possible discharge from the clinic, and possible legal ramifications thereafter if indicated. 3. Counseling: The patient was counseled extensively on BODY MASS INDEX, EXERCISE. Specifically, the patient was instructed regarding the importance of smoking cessation, obesity, and exercise in the context of both chronic pain and overall health. 4. Procedures: L SI RFA next visit 5. Consultations: None 6. Investigations: None 7. Medications: Fentanyl patch (50 mcg/hr #10) with one refill; Percocet decreased to 10/325 #135 for next month and then #120 for December. 8. Disposition: f/u for procedure as scheduled; I have again informed patient that we will likely continue decreasing his Percocet at next visit in order to get him closer to #90 within the next six months, to decrease his already very high narcotic load. PQRS measures: 1-Patient's medications are documented in the chart. 2-Tobacco use is negative 3-Patient has not had a pneumococcal vaccine. 4-Advanced care planning discussed, patient unable to give. 5-Opioid contract signed with the patient. 6-Pain positive, follow-up visit or procedure scheduled 7-Patient's blood pressure measured and documented, and patient will follow up with the primary care due to hypertension. 8-Patient's weight was measured, and body mass index ABOVE the normal limits, and counseling was done. Patient instructed to follow up with PCP. 9-Patient WAS NOT identified as an unhealthy alcohol user.
== END ==
LOC: PNWHC3 11:59
PROVIDERS: ATTEND Anesthesiology
DX: M47.26 Other spondylosis with radiculopathy, lumbar region (principal); M46.1 Sacroiliitis, not elsewhere classified; Z79.891 Long term (current) use of opiate analgesic; Z79.899 Other long term (current) drug therapy
CPT/HCPCS: 99211

== ENCOUNTER → 2016-12-28 | Outpatient (CLI) | payer MEDICARE, OTHER ==
[2016-12-28 12:12] VITALS: BP 160/95; PULSE 80; RESP 16; TEMP 98.1
--- NOTE | 2016-12-28 12:30 | P.PN ---
Progress Note - Text The patient returns for follow-up of chronic back and neck pain. Several months ago, patient underwent right SI RFA and more recently, TPI in left shoulder that have both helped him. Patient continues on his fentanyl patch and Percocet medication with good relief at this time. There are no signs or symptoms of opioid abuse/misuse/diversion. He continues to complain of returning low back and hip pain on the left side that has been responsive to previous sacroiliac joint injections and radiofrequency ablation in the past. Patient is doing well with his medications and denies any side effects to them. Review of systems is negative for chest pain, shortness of breath, changes in vision, changes in hearing, new onset weakness, abdominal pain, diarrhea, extreme fatigue, malaise, fever, skin changes, homicidal or suicidal ideation, or bowel or bladder incontinence. Gen: WDWN, AAOx3, NAD HEENT: NCAT, EOMI, hearing grossly normal Pulm: resp unlabored Abd: soft, NT, ND Neck: supple, trachea midline ROM in flexion lumbar spine: reduced ROM in extension lumbar spine: reduced Lumbar paravertebral tenderness: + bilateral Facet loading: + bilateral SI joint tenderness: + Delmer's test: + L > R Straight leg raise: neg bilateral Neuro: CN II-XII grossly intact, muscle strength lower extremities reduced secondary to pain Imaging: Reviewed in EMR Assessment: 1. Sacroiliitis 2. Cervical radiculopathy 3. Lumbar spondylosis without myelopathy Plan: 1. Explanation: Opioid and psychological risk scores were reviewed. Diagnoses , prognoses, and multiple treatment options including but not limited to physical therapy, interventional therapies, adjuvant medical therapies, narcotic medication therapies, and surgery were discussed with the patient and all questions were answered to the patient's satisfaction. 2. Opioid agreement: Patient has previously signed narcotic agreement, and was orally counseled to not overuse, abuse, divert, or cell medications, and to take them as prescribed by only 1 healthcare provider. The patient was also counseled to store opioid medications in a safe and preferably locked location. Patient was also counseled against driving while using narcotic medications and also to not use alcohol or any illicit or recreational drugs. The patient verbalized understanding that lack of compliance with any of the above and likely result in failure to renew narcotic prescriptions, possible discharge from the clinic, and possible legal ramifications thereafter if indicated. 3. Counseling: The patient was counseled extensively on BODY MASS INDEX, EXERCISE. Specifically, the patient was instructed regarding the importance of smoking cessation, obesity, and exercise in the context of both chronic pain and overall health. 4. Procedures: L SI RFA and left shoulder TPI 5. Consultations: None 6. Investigations: UDS today 7. Medications: Fentanyl patch (50 mcg/hr #10) with one refill; Percocet 10/ 325 #120 with one refill. 8. Disposition: f/u for procedure as scheduled. Please f/u final UDS at next visit given patient's essentially negative urine drug screen in 03/2016. PQRS measures: 1-Patient's medications are documented in the chart. 2-Tobacco use is negative 3-Patient has not had a pneumococcal vaccine. 4-Advanced care planning discussed, patient unable to give. 5-Opioid contract signed with the patient. 6-Pain positive, follow-up visit or procedure scheduled 7-Patient's blood pressure measured and documented, and patient will follow up with the primary care due to hypertension. 8-Patient's weight was measured, and body mass index ABOVE the normal limits, and counseling was done. Patient instructed to follow up with PCP. 9-Patient WAS NOT identified as an unhealthy alcohol user.
== END | disposition home or self-care (01) ==
LOC: PNWHC3 11:44
PROVIDERS: ATTEND Anesthesiology
DX: M47.816 Spondylosis without myelopathy or radiculopathy, lumbar region (principal); M54.12 Radiculopathy, cervical region; M46.1 Sacroiliitis, not elsewhere classified; Z79.891 Long term (current) use of opiate analgesic
CPT/HCPCS: 80356; 99211

== ENCOUNTER 2017-01-21 07:17 | Day surgery (SDC) | payer MEDICARE, OTHER ==
[2017-01-18 15:25] VITALS: BMI 35.9
[2017-01-21 07:26] VITALS: RESP 16; TEMP 97.8
[2017-01-21] MEDS ORDERED: LIDOCAINE 1% 20 ML VIAL (10MG/ML) FOR IV START SQ ONE (07:33)
[2017-01-21] MEDS ORDERED: IV FLUID CONTINUATION 1,000 ML IV ONE (08:49)
--- NOTE | 2017-01-21 08:57 | P.PCN ---
Date of Procedure: 01/21/17 Procedure(s) Performed: Preoperative diagnoses= 1- sacroiliitis. 2-lumbar spondylosis with lumbar facet arthropathy without myelopathy 3-myofascial pain syndromes cervical area Postoperative diagnoses= same as preoperative diagnosis. Procedure= trigger point injections cervical paravertebral muscles total of 2 trigger point injected, the right side cervical paravertebral muscles Anesthesia= none. Estimated blood loss=none Procedure indication= the patient had a history of severe chronic neck low back pain, diagnosed with sacroiliitis and lumbar sacral facet arthropathy, And myofascial pain syndrome and cervical area and responsive to the conservative treatment, patient is scheduled to have radiofrequency ablation of the left side dorsal ramus of L5-S1 on the left branches of S1 ,S2 ,S3 , fluoroscopy guidance, and the trigger point injections cervical area, after brought patient to the operating room, found that the radiofrequency machine is not functioning , for this reason we did only trigger point injections, the radiofrequency part was not done Procedure description= the patient was seen and identified in the preoperative holding area, risks and benefits and alternative of the procedure and possible complications discussed with the patient, and he agreed with the preceding, patient signed the consent, an IV was started, and vital signs were monitored and were stable throughout the procedure, patient was placed in the prone position , the cervical area prepped with chlorhexidine 3 , then each of the trigger point that was identified in the preop holding area each one of them injected with Marcaine 0.75% , 3 ML injected at each trigger point, the injections done after negative aspiration under was no paresthesia during the injection , total of 6 ML of Marcaine 0.75% use and it was mixed with 40 mg of Kenalog , patient tolerated the procedure well without any complications, The patient returned to supine position after the back was cleaned and a Band- Aid applied, the patient transported to recovery room in stable condition and he was monitored for 30 minutes before he was discharged home and then patient was reexamined before going home and patient was discharged in stable condition and patient will follow up with the pain clinic in few days , he will be scheduled to have the radiofrequency ablation of the left sacroiliac joint , after we fix /replace the radiofrequency machine
[2017-01-21 09:03] VITALS: BP 138/85; PULSE 70
== END 2017-01-21 09:17 | disposition home or self-care (01) ==
LOC: ORPAIN 07:17
PROVIDERS: ATTEND Specialist
DX: G89.29 Other chronic pain (principal); M46.1 Sacroiliitis, not elsewhere classified; M47.816 Spondylosis without myelopathy or radiculopathy, lumbar region; M46.96 Unspecified inflammatory spondylopathy, lumbar region; M79.1 Myalgia; Z88.8 Allergy status to other drugs, medicaments and biological substances; Z88.1 Allergy status to other antibiotic agents; Z91.030 Bee allergy status
CPT/HCPCS: 20552; J3301